=== PATIENT | female | born 1970 | race Caucasian/White ===

== ENCOUNTER 2017-09-29 06:57 | Inpatient (IN) | payer OTHER ==
[~2017-09-29] VITALS: Ht 231.1 cm; Wt 114.8 kg
[~2017-09-29 06:57] MED LIST: 'PARAFON FORTE500 M1 PO; ALPRAZOLAM2 MG PO; AMBIEN10 MG PO; AMOXICILLIN500 MG PO; ANAPROX DS550 MG PO; AORACILLIN B500 MG PO; ATIVAN1 MG PO; AUGMENTIN 875 M1 TAB PO; AUGMENTIN 875875 MG PO; BACTRIM DS 8001 TA1 PO; BIAXIN500 MG PO; CIPRO500 MG PO; CLARITIN10 MG PO; CLEOCIN150 MG PO; CLINDAMYCIN HC300 MG PO; DEPAKOTE250 MG PO; DONNATAL1 TAB PO; FLONASE ALLERG9.9 ML NAS; HYDROCODONE BIT1 T11 PO; KENALOG0.1% TP; KLONOPIN2 MG; KLONOPIN2 MG PO; LASIX20 MG PO; LEVOFLOXACIN500 MG PO; LEVOTHYROXINE137 MCG PO; MOTRIN800 MG PO; NORCO 325 MG-51 TAB PO; NORCO 5-325 TA1 EACH PO; PEN-VEE K500 MG PO; PEN-VK500 MG PO; PENICILLIN-VK500 M1 PO; PEPCID20 MG PO; PERCOCET 325 MG1 TA7 PO; PHENERGAN25 M1 PO; PREDNISONE10 MG PO; PRILOSEC OTC20 MG PO; Peridex 473 ML473 ML PO; ROBITUSSIN DM 105 ML PO; SYNTHROID0.075 MG PO; SYNTHROID0.15 MG PO; TRAMADOL HCL50 MG PO; TRAMADOL50 MG PO; TRIMOX500 MG PO; ULTRAM50 MG PO; VICODIN 5/500 505 MG PO; VICODIN 500 MG-1 TAB PO; XANAX2 MG PO; ZANTAC150 MG PO; ZITHROMAX Z PA250 MG PO; ZOFRAN ODT4 MG SL; ZYRTEC10 MG PO
[2017-09-29 07:12] VITALS: BP 166/101
[2017-09-29 07:45] VITALS: BP 133/62
[2017-09-29 08:02] LABS: BASO # 0.1 10*3/uL (0.0-0.1); BASO % 0.6 % (0.0-1.0); EOS # 0.5 10*3/uL (0.0-0.4); EOS % 4.9 % (1.0-4.0); HEMATOCRIT 44.3 % (37.0-47.0); HEMOGLOBIN 14.2 g/dl (12.0-16.0); LYMPH # 2.7 10*3/uL (1.3-4.4); LYMPH % 27.8 % (27.0-41.0); MEAN CELL VOLUME 92.1 fl (81.0-99.0); MEAN CORPUSCULAR HGB 29.5 pg (27.0-31.0); MEAN CORPUSCULAR HGB CONC 32.1 g/dl (33.0-37.0); MONO # 0.7 10*3/uL (0.1-1.0); MONO % 7.6 % (3.0-9.0); NEUT # 5.6 10*3/uL (2.3-7.9); NEUT % 58.8 % (47.0-73.0); PLATELET COUNT AUTOMATED 222 10*3/uL (130-400); RED BLOOD COUNT 4.81 10*6/uL (4.10-5.10); RED CELL DISTRI WIDTH 13.7 % (0-14.5); WHITE BLOOD COUNT 9.6 10*3/uL (4.8-10.8)
--- NOTE | 2017-09-29 08:05 | NUR ---
PAIN AND NAUSEA BETTER AFTER DILAUDID AND ZOFRAN. RAN WOODS RN
[2017-09-29 08:11] LABS: ACT PARTIAL THROMBO TIME 27.6 SECONDS (20.8-31.5); INTERNATIONAL NORM RATIO 1.1 (2.0-3.5)
[2017-09-29 08:19] LABS: ALBUMIN 3.3 gm/dl (3.1-4.5); ALKALINE PHOSPHATASE 72 U/L (45-117); BUN 11 mg/dl (7-24); CHLORIDE 107 mmol/L (98-107); CREATININE 0.93 mg/dL (0.55-1.02); LIPASE 144 U/L (73-393); POTASSIUM 4.2 mmol/L (3.5-5.1); SGOT/AST 15 IU/L (3-35); SGPT/ALT 29 U/L (12-78); SODIUM 141 mmol/L (136-145); TOTAL PROTEIN 6.9 gm/dL (6.4-8.2)
[2017-09-29 08:20] LABS: BILIRUBIN NEGATIVE (NEGATIVE); BLOOD TRACE-LYSED (NEGATIVE); CLARITY SL CLOUDY (CLEAR); COLOR YELLOW (YELLOW); GLUCOSE NEGATIVE (NEGATIVE); KETONE NEGATIVE (NEGATIVE); LEUKO ESTERASE NEGATIVE (NEGATIVE); NITRITE NEGATIVE (NEGATIVE); SPECIFIC GRAVITY 1.025 (1.005-1.030)
[2017-09-29 08:21] LABS: TROPONIN I < 0.015 ng/ml (<0.045)
[2017-09-29 08:35] LABS: BACTERIA 2+; MUCOUS 1+
[2017-09-29 08:38] LABS: CALCIUM OXALATE CRYSTALS TRACE; WAXY CAST 0-2
--- NOTE | 2017-09-29 11:27 | NUR ---
RESTING IN NO DISTRESS. PAIN IS CONTROLLED AT THIS TIME. RAN WOODS RN
[2017-09-29 12:13] VITALS: BP 122/74
[2017-09-29 12:30] VITALS: BP 116/81
--- NOTE | 2017-09-29 12:30 | NUR ---
Time: A 47 year old F admitted to 5E under services of ZULEYMA CALDERA DO, Pt. arrived via wheel chair from ER. Chief complaint: ABDOMINAL PAIN. JUSTICE ZURITA
--- NOTE | 2017-09-29 14:28 | NUR ---
DR. OBREGON MADE AWARE OF CONSULT IN PERSON.
[2017-09-29 16:00] VITALS: BP 111/60
[2017-09-29] MEDS ORDERED: WELLBUTRIN XL150 MG PO (16:09)
[2017-09-29] MEDS ORDERED: LEXAPRO20 MG PO (16:10)
--- NOTE | 2017-09-29 16:25 | NUR ---
MADE AWARE OF ADMISSION. MED RX COMPLETED.
--- NOTE | 2017-09-29 17:00 | NUR ---
INSTRUCTED FOR IS. ACHIEVING A VOLUME OF 1500. LUNG SOUNDS ARE DIMINISHED, BUT CLEAR.ENCOURAGED TO DO IS 5 X DAILY.
[2017-09-29 20:00] VITALS: BP 108/68
--- NOTE | 2017-09-29 20:00 | NUR ---
RESTING IN BED WATCHING TV. RESPIRATIONS EASY. LUNGS DIMINISHED, CLEAR. PULSE OX 98% RA. ABD SOFT WITH NORMOACTIVE BOWEL SOUNDS, DENIES N/V/D. TRACE BLE EDEMA, DECLINING TEDS. CALL LIGHT WITHIN REACH. NO VOICED COMPLAINTS
--- NOTE | 2017-09-29 22:05 | NUR ---
REQUESTED AND RECEIVED NORCO PER PRN ORDER FOR COMPLAINTS OF ABD PAIN RATING A 7. CALL LIGHT WITHIN REACH. WILL MONITOR FOR EFFECTIVENESS
[2017-09-30] VITALS: BP 110/61
--- NOTE | 2017-09-30 | NUR ---
EARLIER NORCO EFFECTIVE, SLEEPING.
--- NOTE | 2017-09-30 06:00 | NUR ---
SLEPT THROUGHOUT NIGHT WITH NO DISTRESS NOTED. RESPIRATIONS EASY. CALL LIGHT WITHIN REACH
[2017-09-30 06:12] LABS: BASO # 0.1 10*3/uL (0.0-0.1); BASO % 0.7 % (0.0-1.0); EOS # 0.5 10*3/uL (0.0-0.4); EOS % 5.1 % (1.0-4.0); HEMATOCRIT 40.7 % (37.0-47.0); HEMOGLOBIN 12.8 g/dl (12.0-16.0); LYMPH # 3.1 10*3/uL (1.3-4.4); LYMPH % 34.5 % (27.0-41.0); MEAN CELL VOLUME 93.6 fl (81.0-99.0); MEAN CORPUSCULAR HGB 29.4 pg (27.0-31.0); MEAN CORPUSCULAR HGB CONC 31.4 g/dl (33.0-37.0); MEAN PLATELET VOLUME 11.5 fl (9.6-12.3); MONO # 0.7 10*3/uL (0.1-1.0); MONO % 7.2 % (3.0-9.0); NEUT # 4.7 10*3/uL (2.3-7.9); NEUT % 52.1 % (47.0-73.0); PLATELET COUNT AUTOMATED 205 10*3/uL (130-400); RED BLOOD COUNT 4.35 10*6/uL (4.10-5.10); WHITE BLOOD COUNT 9.1 10*3/uL (4.8-10.8)
[2017-09-30 06:47] LABS: BUN 7 mg/dl (7-24); CHLORIDE 110 mmol/L (98-107); POTASSIUM 3.6 mmol/L (3.5-5.1); SODIUM 144 mmol/L (136-145)
[2017-09-30 06:59] LABS: CHOLESTEROL 102 mg/dL (<200); CREATININE 0.73 mg/dL (0.55-1.02); FREE T4 0.85 ng/dl (0.76-1.46); HDL CHOLESTEROL 35 mg/dl (40-60); LDL CHOLESTEROL 42 mg/dL (9-159); PHOSPHOROUS 3.3 mg/dL (2.5-4.9); TRIGLYCERIDES 125 mg/dl (<150); VLDL CHOLESTEROL 25 mg/dL (6-40)
[2017-09-30 07:36] LABS: VITAMIN D, 25-HYDROXY 5.6 ng/mL (30-100)
[2017-09-30 08:00] VITALS: BP 124/60
--- NOTE | 2017-09-30 08:00 | NUR ---
IN BED RESTING QUIETLY. AWAKENS TO VOICE. NO S/S OF DISTRESS. SEE ASSESS. WILL CONT TO MONITOR. CALL LIGHT IN REACH.
[2017-09-30 16:00] VITALS: BP 123/75
--- NOTE | 2017-09-30 20:00 | NUR ---
LAB RESULTS AND ORDERS REVIEWED. NO DISTRESS NOTED AT TIME TIME. PT IN BED RESTING. CALL LIGHT IN REACH.
--- NOTE | 2017-09-30 22:49 | NUR ---
PT IN BED RESTING. NO A AND S OF ACUTE DISTRESS NOTED CURRENTLY. WILL CONTINUE TO MONITOR.
[2017-10-01] VITALS: BP 149/80
[2017-10-01 07:11] LABS: BASO # 0.1 10*3/uL (0.0-0.1); BASO % 0.9 % (0.0-1.0); EOS # 0.6 10*3/uL (0.0-0.4); EOS % 5.8 % (1.0-4.0); HEMATOCRIT 42.1 % (37.0-47.0); HEMOGLOBIN 13.9 g/dl (12.0-16.0); LYMPH # 2.5 10*3/uL (1.3-4.4); LYMPH % 24.7 % (27.0-41.0); MEAN CELL VOLUME 92.1 fl (81.0-99.0); MEAN CORPUSCULAR HGB 30.4 pg (27.0-31.0); MEAN PLATELET VOLUME 11.2 fl (9.6-12.3); MONO # 0.6 10*3/uL (0.1-1.0); MONO % 6.1 % (3.0-9.0); NEUT # 6.3 10*3/uL (2.3-7.9); PLATELET COUNT AUTOMATED 228 10*3/uL (130-400); RED BLOOD COUNT 4.57 10*6/uL (4.10-5.10); RED CELL DISTRI WIDTH 13.8 % (0-14.5); WHITE BLOOD COUNT 10.1 10*3/uL (4.8-10.8)
[2017-10-01 07:31] LABS: BUN 7 mg/dl (7-24); CHLORIDE 107 mmol/L (98-107); CREATININE 0.76 mg/dL (0.55-1.02); POTASSIUM 3.7 mmol/L (3.5-5.1); SODIUM 141 mmol/L (136-145)
--- NOTE | 2017-10-01 07:45 | NUR ---
SURGERY IN TO SEE PATIENT TO TAKE HER DOWN FOR CHOLECYSTECYOMY. PATIENT REFUSED TO GO DOWN, AND WANT TO WAIT FOR FAMILY MEMBER TO ARRIVE. PATIENT KEPT NPO.
[2017-10-01 08:00] VITALS: BP 146/88
--- NOTE | 2017-10-01 08:05 | NUR ---
PATIENT RESTING IN BED WITH FAMILY AT THE BEDTIME. PATIENT REPORTS HAVING ANXIETY ABOUT THE OPERATION SCHEDULED FOR TODAY. PATIENT DENIES ANY PAIN, DISCOMFORT, OR SHORTNESS OF BREATHE UPON ASSESSMENT. PATIENT IS AMBULATORY AND A&OX3. HOB ELEVATED, SKIN W/D/I. CALL LIGHT WITHIN REACH. SEE ASSESSMENT.
--- NOTE | 2017-10-01 08:44 | NUR ---
DR. BENITO NOTIFIED THAT PATIENT IS REFUSING CHOLECYSTECTOMY SCHEDULED FOR TODAY. NO FURTHER ORDERS GIVEN.
[2017-10-01 12:30] VITALS: BP 129/80
--- NOTE | 2017-10-01 13:10 | NUR ---
Discharge instructions reviewed with patient/family. Patient receptive and verbalizes understanding. Follow-up care arranged WITH PCP AND IN ONE WEEK. Written instructions given to patient/family. PATIENT AMBULATED OFF OF FLOOR WITH FAMILY VLADIMIR BAER
== END 2017-10-01 13:10 | disposition home or self-care (01) | DRG 446 ==
LOC: ED 06:57 → EDHOLD 11:16 → 5E 11:16
PROVIDERS: Emergency Medicine; Student in an Organized Health Care Education/Training Program; ADMIT Internal Medicine
DX: K80.00 Calculus of gallbladder with acute cholecystitis without obstruction (principal); E66.01 Morbid (severe) obesity due to excess calories; F17.210 Nicotine dependence, cigarettes, uncomplicated; E03.9 Hypothyroidism, unspecified; E55.9 Vitamin D deficiency, unspecified; K83.8 Other specified diseases of biliary tract; Z53.29 Procedure and treatment not carried out because of patient's decision for other reasons; E53.8 Deficiency of other specified B group vitamins; Z71.6 Tobacco abuse counseling; Z88.8 Allergy status to other drugs, medicaments and biological substances; Z79.899 Other long term (current) drug therapy; Z91.81 History of falling; Z90.710 Acquired absence of both cervix and uterus; Z98.51 Tubal ligation status; Z82.49 Family history of ischemic heart disease and other diseases of the circulatory system; Z83.3 Family history of diabetes mellitus; Z83.6 Family history of other diseases of the respiratory system; Z80.8 Family history of malignant neoplasm of other organs or systems; Z85.41 Personal history of malignant neoplasm of cervix uteri; Z68.21 Body mass index [BMI] 21.0-21.9, adult

== ENCOUNTER 2017-11-11 10:12 | Inpatient (IN) | payer OTHER ==
[~2017-11-11] VITALS: Ht 170.1 cm; Wt 113.4 kg
[~2017-11-11 10:12] MED LIST changes: +KLONOPIN2 M1 PO; -KLONOPIN2 MG; +LEXAPRO20 MG PO; +WELLBUTRIN XL150 MG PO
[2017-11-11 10:20] VITALS: BP 149/105
[2017-11-11 10:37] LABS: BASO # 0.1 10*3/uL (0.0-0.1); BASO % 0.4 % (0.0-1.0); EOS # 0.4 10*3/uL (0.0-0.4); EOS % 3.5 % (1.0-4.0); HEMOGLOBIN 14.9 g/dl (12.0-16.0); LYMPH # 2.7 10*3/uL (1.3-4.4); MEAN CELL VOLUME 91.1 fl (81.0-99.0); MEAN CORPUSCULAR HGB 30.2 pg (27.0-31.0); MEAN CORPUSCULAR HGB CONC 33.1 g/dl (33.0-37.0); MEAN PLATELET VOLUME 10.6 fl (9.6-12.3); MONO # 0.6 10*3/uL (0.1-1.0); MONO % 5.3 % (3.0-9.0); NEUT # 7.5 10*3/uL (2.3-7.9); NEUT % 66.5 % (47.0-73.0); PLATELET COUNT AUTOMATED 259 10*3/uL (130-400); RED BLOOD COUNT 4.94 10*6/uL (4.10-5.10); RED CELL DISTRI WIDTH 13.9 % (0-14.5); WHITE BLOOD COUNT 11.3 10*3/uL (4.8-10.8)
[2017-11-11 10:53] LABS: ALBUMIN 3.7 gm/dl (3.1-4.5); ALKALINE PHOSPHATASE 85 U/L (45-117); BUN 11 mg/dl (7-24); CHLORIDE 107 mmol/L (98-107); CREATININE 1.17 mg/dL (0.55-1.02); LIPASE 145 U/L (73-393); SGOT/AST 12 IU/L (3-35); SGPT/ALT 14 U/L (12-78); SODIUM 141 mmol/L (136-145); TOTAL PROTEIN 7.6 gm/dL (6.4-8.2)
[2017-11-11 10:55] LABS: TROPONIN I < 0.015 ng/ml (<0.045)
[2017-11-11 12:00] VITALS: BP 142/90
[2017-11-11 16:00] VITALS: BP 111/73
[2017-11-11 20:00] VITALS: BP 123/81
[2017-11-12] VITALS: BP 114/79
[2017-11-12 07:32] LABS: BASO # 0.1 10*3/uL (0.0-0.1); BASO % 0.6 % (0.0-1.0); EOS # 0.4 10*3/uL (0.0-0.4); EOS % 4.4 % (1.0-4.0); HEMATOCRIT 41.5 % (37.0-47.0); HEMOGLOBIN 13.3 g/dl (12.0-16.0); LYMPH # 2.4 10*3/uL (1.3-4.4); LYMPH % 28.9 % (27.0-41.0); MEAN CELL VOLUME 92.6 fl (81.0-99.0); MEAN CORPUSCULAR HGB 29.7 pg (27.0-31.0); MEAN PLATELET VOLUME 10.6 fl (9.6-12.3); MONO # 0.5 10*3/uL (0.1-1.0); MONO % 6.5 % (3.0-9.0); NEUT # 4.8 10*3/uL (2.3-7.9); NEUT % 59.1 % (47.0-73.0); PLATELET COUNT AUTOMATED 205 10*3/uL (130-400); RED BLOOD COUNT 4.48 10*6/uL (4.10-5.10); RED CELL DISTRI WIDTH 13.7 % (0-14.5); WHITE BLOOD COUNT 8.2 10*3/uL (4.8-10.8)
[2017-11-12 07:52] LABS: ACT PARTIAL THROMBO TIME 28.3 SECONDS (20.8-31.5); INTERNATIONAL NORM RATIO 1.2 (2.0-3.5)
[2017-11-12 07:59] LABS: ALBUMIN 3.1 gm/dl (3.1-4.5); ALKALINE PHOSPHATASE 73 U/L (45-117); BUN 10 mg/dl (7-24); CHLORIDE 107 mmol/L (98-107); CHOLESTEROL 137 mg/dL (<200); CREATININE 0.75 mg/dL (0.55-1.02); HDL CHOLESTEROL 41 mg/dl (40-60); LDL CHOLESTEROL 77 mg/dL (9-159); PHOSPHOROUS 2.8 mg/dL (2.5-4.9); POTASSIUM 3.7 mmol/L (3.5-5.1); SGOT/AST 10 IU/L (3-35); SGPT/ALT 18 U/L (12-78); SODIUM 142 mmol/L (136-145); TOTAL PROTEIN 6.4 gm/dL (6.4-8.2); TRIGLYCERIDES 97 mg/dl (<150); VLDL CHOLESTEROL 19 mg/dL (6-40)
[2017-11-12 08:00] VITALS: BP 124/80
[2017-11-12 08:25] LABS: VITAMIN D, 25-HYDROXY 8.3 ng/mL (30-100)
[2017-11-12] MEDS ORDERED: PHENERGAN25 M3 PO (11:23)
[2017-11-12 12:00] VITALS: BP 116/70
== END 2017-11-12 13:44 | disposition home or self-care (01) | DRG 444 ==
LOC: ED 10:12 → EDHOLD 12:01 → 5E 12:01
PROVIDERS: Internal Medicine Hospice and Palliative Medicine; Student in an Organized Health Care Education/Training Program
DX: K80.20 Calculus of gallbladder without cholecystitis without obstruction (principal); N17.0 Acute kidney failure with tubular necrosis; E66.01 Morbid (severe) obesity due to excess calories; E55.9 Vitamin D deficiency, unspecified; F32.9 Major depressive disorder, single episode, unspecified; E03.9 Hypothyroidism, unspecified; D72.829 Elevated white blood cell count, unspecified; F41.1 Generalized anxiety disorder; R73.9 Hyperglycemia, unspecified; D72.810 Lymphocytopenia; Z71.6 Tobacco abuse counseling; Z72.0 Tobacco use; Z79.899 Other long term (current) drug therapy; Z90.711 Acquired absence of uterus with remaining cervical stump; Z98.51 Tubal ligation status; Z85.41 Personal history of malignant neoplasm of cervix uteri; Z83.3 Family history of diabetes mellitus; Z82.49 Family history of ischemic heart disease and other diseases of the circulatory system; Z80.9 Family history of malignant neoplasm, unspecified; Z88.8 Allergy status to other drugs, medicaments and biological substances; Z68.28 Body mass index [BMI] 28.0-28.9, adult

== ENCOUNTER 2017-12-10 15:20 | Emergency (ER) | payer OTHER ==
[~2017-12-10] VITALS: Ht 170.1 cm; Wt 104.3 kg
[~2017-12-10 15:20] MED LIST changes: +PHENERGAN25 M3 PO
[2017-12-10] MEDS ORDERED: CHLORZOXAZONE500 M2 PO (15:44)
[2017-12-10] MEDS ORDERED: NAPROSYN500 MG PO (15:44)
== END 2017-12-10 17:49 | disposition home or self-care (01) ==
LOC: ED 15:20
DX: M54.2 Cervicalgia (principal); M54.5 Low back pain; M25.561 Pain in right knee; M79.601 Pain in right arm; R03.0 Elevated blood-pressure reading, without diagnosis of hypertension; E03.9 Hypothyroidism, unspecified; F17.200 Nicotine dependence, unspecified, uncomplicated; E66.01 Morbid (severe) obesity due to excess calories; Z98.51 Tubal ligation status; Z98.890 Other specified postprocedural states; Z79.899 Other long term (current) drug therapy; Z88.5 Allergy status to narcotic agent; Z88.6 Allergy status to analgesic agent; W18.49XA Other slipping, tripping and stumbling without falling, initial encounter; Y93.89 Activity, other specified; Y92.481 Parking lot as the place of occurrence of the external cause; Y99.9 Unspecified external cause status

== ENCOUNTER 2018-02-16 19:21 | Emergency (ER) | payer OTHER ==
[~2018-02-16] VITALS: Ht 170.1 cm; Wt 105.2 kg
[~2018-02-16 19:21] MED LIST changes: +CHLORZOXAZONE500 M2 PO; +NAPROSYN500 MG PO
[2018-02-16 20:01] LABS: URINE AMPHETAMINES > 1000 (1000ng/ml); URINE BARBITURATES < 200 (200ng/ml); URINE BENZODIAZEPINES > 200 (200ng/ml); URINE CANNABINOIDS (THC) < 50 (50ng/ml); URINE COCAINE < 300 (300ng/ml); URINE METHADONE < 300 (300ng/ml); URINE OPIATES < 300 (300ng/ml)
[2018-02-16 20:11] LABS: URINE PHENCYCLIDINE < 25 (25ng/ml)
== END 2018-02-16 20:21 | disposition home or self-care (01) ==
LOC: ED 19:21
PROVIDERS: Physician Assistant
DX: Z01.89 Encounter for other specified special examinations (principal); F17.200 Nicotine dependence, unspecified, uncomplicated; Z98.51 Tubal ligation status; Z90.710 Acquired absence of both cervix and uterus; Z98.890 Other specified postprocedural states; Z79.899 Other long term (current) drug therapy; Z88.6 Allergy status to analgesic agent; Z88.5 Allergy status to narcotic agent

== ENCOUNTER → 2018-02-22 | Outpatient (CLI) | payer OTHER | END | disposition home or self-care (01) | LOC: LAB 13:52 | DX: F19.10 Other psychoactive substance abuse, uncomplicated (principal) ==

== ENCOUNTER 2019-05-18 07:19 | Emergency (ER) | payer OTHER ==
[~2019-05-18] VITALS: Ht 170.1 cm; Wt 102.1 kg
--- NOTE | ~2019-05-18 | EKG ---
[place], [place] ELECTROCARDIOGRAM REPORT NAME: OLIVE MERCADO UNIT #: [id number] ROOM: DOCTOR: EPIPHANY DRAFT REPORT BIRTHDATE: [birth year] [facility] Test Date: 2019-05-18 Test Time: 09:57:19 Pat Name: OLIVE MERCADO Department: Room: Gender: F Guardian Family Member: Annie Glasgow : 1970 Requested By: GISELLE KAMINSKI Order Number: [id number] Reading MD: Brayden Javier MD Measurements Intervals [place] Rate: 51 P: 28 [place]: 136 QRS: -10 QRSD: 91 T: 23 QT: 454 QTc: 419 Interpretive Statements Sinus rhythm No previous ECG available for comparison Electronically Signed On 05-23-2019 4:05:22 PDT by Brayden Javier MD CM:EKGRPT:ELECTROCARDIOGRAM REPORT [id number] GISELLE JOHN DRAFT REPORT GISELLE KAMINSKI M.D.
[2019-05-18 07:57] LABS: BASO # 0.1 10*3/uL (0.0-0.1); BASO % 0.6 % (0.0-1.0); EOS # 0.4 10*3/uL (0.0-0.4); EOS % 3.9 % (1.0-4.0); HEMATOCRIT 44.5 % (37.0-47.0); HEMOGLOBIN 14.4 g/dl (12.0-16.0); LYMPH # 2.6 10*3/uL (1.3-4.4); MEAN CELL VOLUME 94.3 fl (81.0-99.0); MEAN CORPUSCULAR HGB 30.5 pg (27.0-31.0); MEAN CORPUSCULAR HGB CONC 32.4 g/dl (33.0-37.0); MONO # 0.7 10*3/uL (0.1-1.0); MONO % 6.9 % (3.0-9.0); NEUT # 6.7 10*3/uL (2.3-7.9); NEUT % 63.2 % (47.0-73.0); PLATELET COUNT AUTOMATED 274 10*3/uL (130-400); RED BLOOD COUNT 4.72 10*6/uL (4.10-5.10); RED CELL DISTRI WIDTH 13.6 % (0-14.5); WHITE BLOOD COUNT 10.5 10*3/uL (4.8-10.8)
[2019-05-18 08:12] LABS: ALBUMIN 3.5 gm/dl (3.1-4.5); ALKALINE PHOSPHATASE 70 U/L (45-117); BUN 11 mg/dl (7-24); CHLORIDE 110 mmol/L (98-107); CREATININE 0.83 mg/dL (0.55-1.02); LIPASE 87 U/L (73-393); POTASSIUM 3.7 mmol/L (3.5-5.1); SGOT/AST 10 IU/L (3-35); SGPT/ALT 15 U/L (12-78); SODIUM 141 mmol/L (136-145); TOTAL PROTEIN 7.3 gm/dL (6.4-8.2)
[2019-05-18 09:53] LABS: BILIRUBIN NEGATIVE (NEGATIVE); BLOOD TRACE-INTACT (NEGATIVE); CLARITY CLEAR (CLEAR); COLOR YELLOW (YELLOW); GLUCOSE NEGATIVE (NEGATIVE); KETONE NEGATIVE (NEGATIVE); LEUKO ESTERASE NEGATIVE (NEGATIVE); NITRITE NEGATIVE (NEGATIVE); PH 5.5 (5.0-9.0); UROBILINOGEN 0.2 E.U./dl (0.2-1.0)
[2019-05-18] MEDS ORDERED: NORCO 10-325 T1 EACH PO (11:27)
[2019-05-18] MEDS ORDERED: PHENERGAN25 MG R (11:29)
[2019-05-18] MEDS ORDERED: LEVOTHYROXINE100 MC1 PO (19:31)
[2019-05-18] MEDS ORDERED: FLUOXETINE HCL40 MG PO (19:34)
[2019-05-18] MEDS ORDERED: FLUOXETINE HYDR20 M1 PO (19:35)
[2019-05-18] MEDS ORDERED: Synthroid,Levo50 MCG PO (19:36)
[2019-05-18] MEDS ORDERED: CLONAZEPAM1 MG PO (19:37)
[2019-05-18] MEDS ORDERED: AMPHETAMINE/DEX30 MG PO (19:39)
[2019-05-24] MEDS ORDERED: NORCO 5-325 TA1 EACH PO (08:21)
[2019-05-24] MEDS ORDERED: AUGMENTIN 875875 MG PO (08:40)
[2019-06-29] MEDS ORDERED: ADDERALL XR 3030 MG PO (14:29)
[2019-06-29] MEDS ORDERED: VITAMIN D5000 UNIT PO (14:30)
== END 2019-05-18 11:37 | disposition home or self-care (01) ==
LOC: ED 07:19
PROVIDERS: Emergency Medicine
DX: K80.20 Calculus of gallbladder without cholecystitis without obstruction (principal); E03.9 Hypothyroidism, unspecified; E66.01 Morbid (severe) obesity due to excess calories; F17.200 Nicotine dependence, unspecified, uncomplicated; Z79.899 Other long term (current) drug therapy; Z88.6 Allergy status to analgesic agent

== ENCOUNTER 2019-07-03 01:49 | Inpatient (IN) | payer OTHER ==
[2019-06-29 14:16] VITALS: BP 141/88
[2019-06-29 15:15] LABS: BASO # 0.1 10*3/uL (0.0-0.1); BASO % 0.8 % (0.0-1.0); EOS # 0.4 10*3/uL (0.0-0.4); EOS % 4.6 % (1.0-4.0); HEMATOCRIT 46.1 % (37.0-47.0); HEMOGLOBIN 14.7 g/dl (12.0-16.0); LYMPH # 2.7 10*3/uL (1.3-4.4); LYMPH % 30.6 % (27.0-41.0); MEAN CELL VOLUME 93.7 fl (81.0-99.0); MEAN CORPUSCULAR HGB 29.9 pg (27.0-31.0); MEAN CORPUSCULAR HGB CONC 31.9 g/dl (33.0-37.0); MEAN PLATELET VOLUME 10.6 fl (9.6-12.3); MONO # 0.6 10*3/uL (0.1-1.0); MONO % 7.1 % (3.0-9.0); NEUT % 56.4 % (47.0-73.0); PLATELET COUNT AUTOMATED 275 10*3/uL (130-400); RED BLOOD COUNT 4.92 10*6/uL (4.10-5.10); RED CELL DISTRI WIDTH 13.5 % (0-14.5); WHITE BLOOD COUNT 8.8 10*3/uL (4.8-10.8)
[2019-06-29 15:38] LABS: ALBUMIN 3.9 gm/dl (3.1-4.5); BILIRUBIN, DIRECT 0.1 mg/dL (0.0-0.2)
[2019-07-02 19:30] LABS: ALBUMIN 3.9 gm/dl (3.1-4.5); BILIRUBIN, DIRECT 0.1 mg/dL (0.0-0.2)
[2019-07-02 20:10] LABS: BASO # 0.1 10*3/uL (0.0-0.1); BASO % 0.8 % (0.0-1.0); EOS # 0.5 10*3/uL (0.0-0.4); EOS % 5.2 % (1.0-4.0); HEMATOCRIT 46.5 % (37.0-47.0); HEMOGLOBIN 14.8 g/dl (12.0-16.0); LYMPH # 2.9 10*3/uL (1.3-4.4); MEAN CELL VOLUME 93.9 fl (81.0-99.0); MEAN CORPUSCULAR HGB 29.9 pg (27.0-31.0); MEAN CORPUSCULAR HGB CONC 31.8 g/dl (33.0-37.0); MEAN PLATELET VOLUME 11.5 fl (9.6-12.3); MONO # 0.5 10*3/uL (0.1-1.0); MONO % 5.9 % (3.0-9.0); NEUT # 4.8 10*3/uL (2.3-7.9); NEUT % 54.8 % (47.0-73.0); PLATELET COUNT AUTOMATED 273 10*3/uL (130-400); RED BLOOD COUNT 4.95 10*6/uL (4.10-5.10); RED CELL DISTRI WIDTH 13.6 % (0-14.5); WHITE BLOOD COUNT 8.8 10*3/uL (4.8-10.8)
[~2019-07-03] VITALS: Ht 170.1 cm; Wt 102.5 kg
[2019-07-03] VITALS (7 sets, daily range): BP systolic 106–133; BP diastolic 58–90
--- NOTE | ~2019-07-03 | EKG ---
[place], [place] ELECTROCARDIOGRAM REPORT NAME: OLIVE MERCADO UNIT #: [id number] ROOM: 529 DOCTOR: TANIANY DRAFT REPORT BIRTHDATE: [birth year] [facility] Test Date: 2019-06-29 Test Time: 15:24:21 Pat Name: OLIVE MERCADO Department: Room: 529 Gender: F Rn Unit Manager: MIC : 1970 Requested By: NORIS MARTEL Order Number: [id number] Reading MD: Brayden Javier MD Measurements Intervals [place] Rate: 51 P: 32 [place]: 145 QRS: -8 QRSD: 91 T: 38 QT: 443 QTc: 409 Interpretive Statements Sinus rhythm Baseline wander in lead(s) II Compared to ECG 05/18/2019 17:23:38 Myocardial infarct finding no longer present Electronically Signed On 07-04-2019 4:00:06 PDT by Brayden Javier MD CM:EKGRPT:ELECTROCARDIOGRAM REPORT [id number] NORIS MARTEL MD EPIPHANY DRAFT REPORT NORIS MARTEL MD
[~2019-07-03 01:49] MED LIST changes: +ADDERALL XR 3030 MG PO; +AMPHETAMINE/DEX30 MG PO; +CLONAZEPAM1 MG PO; +FLUOXETINE HCL40 MG PO; +FLUOXETINE HYDR20 M1 PO; +LEVOTHYROXINE100 MC1 PO; +NORCO 10-325 T1 EACH PO; +PHENERGAN25 MG R; +Synthroid,Levo50 MCG PO; +VITAMIN D5000 UNIT PO
[2019-07-04] VITALS: BP 115/78
[2019-07-04 06:24] LABS: BASO % 0.1 % (0.0-1.0); HEMATOCRIT 39.2 % (37.0-47.0); HEMOGLOBIN 12.5 g/dl (12.0-16.0); LYMPH % 12.5 % (27.0-41.0); MEAN CELL VOLUME 93.8 fl (81.0-99.0); MEAN CORPUSCULAR HGB 29.9 pg (27.0-31.0); MEAN CORPUSCULAR HGB CONC 31.9 g/dl (33.0-37.0); MEAN PLATELET VOLUME 11.4 fl (9.6-12.3); MONO # 1.1 10*3/uL (0.1-1.0); MONO % 7.1 % (3.0-9.0); NEUT # 12.7 10*3/uL (2.3-7.9); NEUT % 79.8 % (47.0-73.0); PLATELET COUNT AUTOMATED 228 10*3/uL (130-400); RED BLOOD COUNT 4.18 10*6/uL (4.10-5.10); RED CELL DISTRI WIDTH 13.6 % (0-14.5); WHITE BLOOD COUNT 15.9 10*3/uL (4.8-10.8)
[2019-07-04 06:35] LABS: ALBUMIN 2.8 gm/dl (3.1-4.5); ALKALINE PHOSPHATASE 58 U/L (45-117); BUN 10 mg/dl (7-24); CHLORIDE 108 mmol/L (98-107); CREATININE 0.83 mg/dL (0.55-1.02); PHOSPHOROUS 2.7 mg/dL (2.5-4.9); SGOT/AST 26 IU/L (3-35); SGPT/ALT 27 U/L (12-78); SODIUM 142 mmol/L (136-145); TOTAL PROTEIN 6.1 gm/dL (6.4-8.2)
[2019-07-04 08:00] VITALS: BP 105/57
[2019-07-04 12:00] VITALS: BP 115/50
[2019-07-04 16:00] VITALS: BP 120/52
[2019-07-04 20:00] VITALS: BP 105/49
[2019-07-05] VITALS: BP 126/70
[2019-07-05 06:16] LABS: BASO # 0.1 10*3/uL (0.0-0.1); BASO % 0.6 % (0.0-1.0); EOS # 0.2 10*3/uL (0.0-0.4); EOS % 2.1 % (1.0-4.0); HEMATOCRIT 37.3 % (37.0-47.0); HEMOGLOBIN 11.6 g/dl (12.0-16.0); LYMPH # 2.7 10*3/uL (1.3-4.4); LYMPH % 26.2 % (27.0-41.0); MEAN CELL VOLUME 96.1 fl (81.0-99.0); MEAN CORPUSCULAR HGB 29.9 pg (27.0-31.0); MEAN CORPUSCULAR HGB CONC 31.1 g/dl (33.0-37.0); MEAN PLATELET VOLUME 11.5 fl (9.6-12.3); MONO # 0.8 10*3/uL (0.1-1.0); MONO % 7.2 % (3.0-9.0); NEUT # 6.5 10*3/uL (2.3-7.9); NEUT % 62.8 % (47.0-73.0); PLATELET COUNT AUTOMATED 204 10*3/uL (130-400); RED BLOOD COUNT 3.88 10*6/uL (4.10-5.10); RED CELL DISTRI WIDTH 13.8 % (0-14.5); WHITE BLOOD COUNT 10.4 10*3/uL (4.8-10.8)
[2019-07-05 06:35] LABS: ALBUMIN 2.7 gm/dl (3.1-4.5); BUN 7 mg/dl (7-24); CHLORIDE 111 mmol/L (98-107); POTASSIUM 3.4 mmol/L (3.5-5.1); SGPT/ALT 21 U/L (12-78); SODIUM 146 mmol/L (136-145)
[2019-07-05 06:38] LABS: ALKALINE PHOSPHATASE 54 U/L (45-117); CREATININE 0.75 mg/dL (0.55-1.02); SGOT/AST 20 IU/L (3-35); TOTAL PROTEIN 5.8 gm/dL (6.4-8.2)
[2019-07-05 08:00] VITALS: BP 120/54
[2019-07-05] MEDS ORDERED: NORCO 7.5-3251 EACH PO (11:58)
[2019-07-05] MEDS ORDERED: IBU800 MG PO (11:58)
== END 2019-07-05 14:30 | disposition home or self-care (01) | DRG 414 ==
LOC: SDC 01:49 → 5E 11:36 → SDC 14:00 → 5E 16:24
PROVIDERS: Internal Medicine; ADMIT Family Medicine
PROC: 0FT40ZZ Resection of Gallbladder, Open Approach (ICD-10-PCS; principal; 2019-07-03)
PROC: 0FJ44ZZ Inspection of Gallbladder, Percutaneous Endoscopic Approach (ICD-10-PCS; principal; 2019-07-03)
PROC: BF131ZZ Fluoroscopy of Gallbladder and Bile Ducts using Low Osmolar Contrast (ICD-10-PCS; principal; 2019-07-03)
DX: K80.12 Calculus of gallbladder with acute and chronic cholecystitis without obstruction (principal); E43 Unspecified severe protein-calorie malnutrition; E03.9 Hypothyroidism, unspecified; E66.01 Morbid (severe) obesity due to excess calories; E55.9 Vitamin D deficiency, unspecified; F41.1 Generalized anxiety disorder; F32.9 Major depressive disorder, single episode, unspecified; F90.9 Attention-deficit hyperactivity disorder, unspecified type; R00.1 Bradycardia, unspecified; D72.829 Elevated white blood cell count, unspecified; R73.9 Hyperglycemia, unspecified; F17.219 Nicotine dependence, cigarettes, with unspecified nicotine-induced disorders; Z71.6 Tobacco abuse counseling; Z90.49 Acquired absence of other specified parts of digestive tract; Z85.41 Personal history of malignant neoplasm of cervix uteri; Z98.51 Tubal ligation status; Z90.711 Acquired absence of uterus with remaining cervical stump; Z83.3 Family history of diabetes mellitus; Z80.8 Family history of malignant neoplasm of other organs or systems; Z82.49 Family history of ischemic heart disease and other diseases of the circulatory system; Z82.5 Family history of asthma and other chronic lower respiratory diseases; Z88.6 Allergy status to analgesic agent; Z91.041 Radiographic dye allergy status; Z79.899 Other long term (current) drug therapy; Z79.890 Hormone replacement therapy; Z68.35 Body mass index [BMI] 35.0-35.9, adult; G89.18 Other acute postprocedural pain

== ENCOUNTER 2019-07-11 22:50 | Emergency (ER) | payer OTHER ==
[~2019-07-11] VITALS: Ht 170.1 cm; Wt 101.2 kg
[~2019-07-11 22:50] MED LIST changes: +IBU800 MG PO; +NORCO 7.5-3251 EACH PO
[2019-07-12 00:10] LABS: BASO # 0.1 10*3/uL (0.0-0.1); BASO % 0.6 % (0.0-1.0); EOS # 0.8 10*3/uL (0.0-0.4); EOS % 7.6 % (1.0-4.0); HEMATOCRIT 41.8 % (37.0-47.0); HEMOGLOBIN 13.3 g/dl (12.0-16.0); LYMPH # 2.7 10*3/uL (1.3-4.4); LYMPH % 25.2 % (27.0-41.0); MEAN CELL VOLUME 93.3 fl (81.0-99.0); MEAN CORPUSCULAR HGB 29.7 pg (27.0-31.0); MEAN CORPUSCULAR HGB CONC 31.8 g/dl (33.0-37.0); MEAN PLATELET VOLUME 10.5 fl (9.6-12.3); MONO # 0.8 10*3/uL (0.1-1.0); MONO % 7.4 % (3.0-9.0); NEUT # 6.1 10*3/uL (2.3-7.9); NEUT % 58.2 % (47.0-73.0); PLATELET COUNT AUTOMATED 314 10*3/uL (130-400); RED BLOOD COUNT 4.48 10*6/uL (4.10-5.10); RED CELL DISTRI WIDTH 13.8 % (0-14.5); WHITE BLOOD COUNT 10.5 10*3/uL (4.8-10.8)
[2019-07-12 00:42] LABS: ALBUMIN 3.2 gm/dl (3.1-4.5); ALKALINE PHOSPHATASE 77 U/L (45-117); BUN 10 mg/dl (7-24); CHLORIDE 106 mmol/L (98-107); CREATININE 1.06 mg/dL (0.55-1.02); LIPASE 79 U/L (73-393); POTASSIUM 3.7 mmol/L (3.5-5.1); SGOT/AST 13 IU/L (3-35); SGPT/ALT 16 U/L (12-78); SODIUM 141 mmol/L (136-145); TOTAL PROTEIN 7.1 gm/dL (6.4-8.2)
== END 2019-07-12 02:00 | disposition home or self-care (01) ==
LOC: ED 22:50
PROVIDERS: Student in an Organized Health Care Education/Training Program
DX: K91.840 Postprocedural hemorrhage of a digestive system organ or structure following a digestive system procedure (principal); E03.9 Hypothyroidism, unspecified; E66.01 Morbid (severe) obesity due to excess calories; F17.210 Nicotine dependence, cigarettes, uncomplicated; Z90.710 Acquired absence of both cervix and uterus; Z91.041 Radiographic dye allergy status; Z88.6 Allergy status to analgesic agent; Z79.899 Other long term (current) drug therapy; Y83.9 Surgical procedure, unspecified as the cause of abnormal reaction of the patient, or of later complication, without mention of misadventure at the time of the procedure

== ENCOUNTER 2019-07-17 14:14 | Emergency (ER) | payer OTHER ==
[~2019-07-17] VITALS: Ht 170.1 cm; Wt 101.2 kg
== END 2019-07-17 16:05 | disposition home or self-care (01) ==
LOC: ED 14:14
DX: K29.00 Acute gastritis without bleeding (principal); Z48.03 Encounter for change or removal of drains; F17.200 Nicotine dependence, unspecified, uncomplicated; Z90.49 Acquired absence of other specified parts of digestive tract; Z91.041 Radiographic dye allergy status; Z88.8 Allergy status to other drugs, medicaments and biological substances; Z79.899 Other long term (current) drug therapy; Z90.710 Acquired absence of both cervix and uterus

== ENCOUNTER → 2020-12-10 | Outpatient (CLI) | payer MEDICARE ==
[2020-12-10 18:01] LABS: BASO # 0.1 10*3/uL (0.0-0.1); BASO % 0.7 % (0.0-1.0); EOS # 0.2 10*3/uL (0.0-0.4); EOS % 2.6 % (1.0-4.0); HEMATOCRIT 49.2 % (37.0-47.0); LYMPH # 2.9 10*3/uL (1.3-4.4); LYMPH % 30.6 % (27.0-41.0); MEAN CELL VOLUME 90.9 fl (81.0-99.0); MEAN CORPUSCULAR HGB 28.5 pg (27.0-31.0); MEAN CORPUSCULAR HGB CONC 31.3 g/dl (33.0-37.0); MEAN PLATELET VOLUME 10.6 fl (9.6-12.3); MONO # 0.6 10*3/uL (0.1-1.0); MONO % 6.3 % (3.0-9.0); NEUT # 5.5 10*3/uL (2.3-7.9); NEUT % 59.4 % (47.0-73.0); PLATELET COUNT AUTOMATED 340 10*3/uL (130-400); RED BLOOD COUNT 5.41 10*6/uL (4.10-5.10); RED CELL DISTRI WIDTH 14.2 % (0-14.5); WHITE BLOOD COUNT 9.3 10*3/uL (4.8-10.8)
[2020-12-10 18:38] LABS: ALBUMIN 3.7 gm/dl (3.1-4.5); ALKALINE PHOSPHATASE 108 U/L (45-117); BUN 10 mg/dl (7-24); CHLORIDE 107 mmol/L (98-107); CHOLESTEROL 173 mg/dL (<200); CREATININE 0.83 mg/dL (0.55-1.02); FREE T4 0.85 ng/dl (0.76-1.46); HDL CHOLESTEROL 48 mg/dl (40-60); LDL CHOLESTEROL 100 mg/dL (9-159); POTASSIUM 4.3 mmol/L (3.5-5.1); SGOT/AST 24 IU/L (3-35); SGPT/ALT 41 U/L (12-78); SODIUM 140 mmol/L (136-145); TOTAL PROTEIN 8.3 gm/dL (6.4-8.2); TRIGLYCERIDES 126 mg/dl (<150); VLDL CHOLESTEROL 25 mg/dL (6-40)
[2020-12-10 18:45] LABS: VITAMIN D, 25-HYDROXY 17.4 ng/mL (30-100)
== END | disposition home or self-care (01) ==
LOC: LAB 17:12
PROVIDERS: ATTEND Internal Medicine
DX: I10 Essential (primary) hypertension (principal); E03.9 Hypothyroidism, unspecified; E55.9 Vitamin D deficiency, unspecified; Z00.00 Encounter for general adult medical examination without abnormal findings

== ENCOUNTER → 2021-07-25 | Outpatient (CLI) | payer MEDICARE | END | disposition home or self-care (01) | LOC: COVID19 17:34 | PROVIDERS: ATTEND Podiatrist Foot & Ankle Surgery | DX: Z11.52 Encounter for screening for COVID-19 (principal) ==

== ENCOUNTER 2021-09-24 18:13 | Emergency (ER) | payer MEDICARE ==
[~2021-09-24] VITALS: Ht 170.1 cm; Wt 113.4 kg
[2021-09-24] MEDS ORDERED: AUGMENTIN 875875 MG PO (19:30)
[2021-09-24] MEDS ORDERED: IBUPROFEN600 MG PO (19:30)
[2021-09-24] MEDS ORDERED: HYDROCODONE-AC1 EAC1 PO (22:04)
== END 2021-09-24 22:24 | disposition home or self-care (01) ==
LOC: ED 18:13
DX: S91.312A Laceration without foreign body, left foot, initial encounter (principal); Z91.041 Radiographic dye allergy status; Z88.6 Allergy status to analgesic agent; Z79.899 Other long term (current) drug therapy; W54.0XXA Bitten by dog, initial encounter; Y93.89 Activity, other specified; Y92.89 Other specified places as the place of occurrence of the external cause; Y99.8 Other external cause status

== ENCOUNTER 2021-09-28 16:50 | Emergency (ER) | payer MEDICARE ==
[~2021-09-28 16:50] MED LIST changes: +HYDROCODONE-AC1 EAC1 PO; +IBUPROFEN600 MG PO
== END 2021-09-28 17:50 | disposition home or self-care (01) ==
LOC: ED 16:50
DX: Z23 Encounter for immunization (principal); Z91.041 Radiographic dye allergy status; Z88.6 Allergy status to analgesic agent; Z79.899 Other long term (current) drug therapy; F17.200 Nicotine dependence, unspecified, uncomplicated

== ENCOUNTER 2022-06-01 20:36 | Emergency (ER) | payer MEDICARE ==
[2022-06-01] MEDS ORDERED: PROZAC40 M1 PO (21:16)
[2022-06-01] MEDS ORDERED: PREDNISONE10 MG PO (21:47)
== END 2022-06-01 21:47 | disposition home or self-care (01) ==
LOC: ED 20:36
DX: M72.2 Plantar fascial fibromatosis (principal); F17.200 Nicotine dependence, unspecified, uncomplicated; Z98.51 Tubal ligation status; Z79.899 Other long term (current) drug therapy; Z91.041 Radiographic dye allergy status; Z88.6 Allergy status to analgesic agent

== ENCOUNTER 2022-12-20 18:01 | Emergency (ER) | payer MEDICARE ==
[~2022-12-20] VITALS: Ht 170.1 cm; Wt 108.9 kg
[~2022-12-20 18:01] MED LIST changes: +PROZAC40 M1 PO
[2022-12-20] MEDS ORDERED: MELOXICAM15 MG PO (18:59)
== END 2022-12-20 19:21 | disposition home or self-care (01) ==
LOC: ED 18:01
DX: R07.81 Pleurodynia (principal); Z91.041 Radiographic dye allergy status; Z88.8 Allergy status to other drugs, medicaments and biological substances; Z90.49 Acquired absence of other specified parts of digestive tract; Z90.711 Acquired absence of uterus with remaining cervical stump; Z98.51 Tubal ligation status; Z98.890 Other specified postprocedural states

== ENCOUNTER 2023-01-18 16:56 | Emergency (ER) | payer MEDICARE ==
[~2023-01-18] VITALS: Wt 108.9 kg
[~2023-01-18 16:56] MED LIST changes: +MELOXICAM15 MG PO
[2023-01-18 20:29] LABS: BASO # 0.1 10*3/uL (0.0-0.1); BASO % 0.7 % (0.0-1.0); EOS # 0.4 10*3/uL (0.0-0.4); EOS % 4.3 % (1.0-4.0); LYMPH # 2.5 10*3/uL (1.3-4.4); LYMPH % 27.4 % (27.0-41.0); MEAN CELL VOLUME 91.8 fl (81.0-99.0); MEAN CORPUSCULAR HGB 29.3 pg (27.0-31.0); MEAN CORPUSCULAR HGB CONC 31.9 g/dl (33.0-37.0); MEAN PLATELET VOLUME 10.2 fl (9.6-12.3); MONO # 0.7 10*3/uL (0.1-1.0); MONO % 7.3 % (3.0-9.0); NEUT # 5.4 10*3/uL (2.3-7.9); PLATELET COUNT AUTOMATED 290 10*3/uL (130-400); RED BLOOD COUNT 5.23 10*6/uL (4.10-5.10); RED CELL DISTRI WIDTH 14.7 % (0-14.5)
[2023-01-18 20:47] LABS: ALKALINE PHOSPHATASE 117 U/L (46-116); BUN 9 mg/dl (9-23); CHLORIDE 107 mmol/L (98-107); POTASSIUM 3.7 mmol/L (3.4-5.1); SGPT/ALT 13 U/L (10-49); TOTAL PROTEIN 7.2 gm/dL (6.0-8.0)
[2023-01-18] MEDS ORDERED: MEDROL DOSEPAK4 MG PO (21:30)
[2023-01-18] MEDS ORDERED: NAPROSYN500 MG PO (21:30)
== END 2023-01-18 21:42 | disposition home or self-care (01) ==
LOC: ED 16:56
PROVIDERS: Physician Assistant
DX: M77.32 Calcaneal spur, left foot (principal); M77.31 Calcaneal spur, right foot; M54.16 Radiculopathy, lumbar region; Z91.041 Radiographic dye allergy status; Z88.6 Allergy status to analgesic agent; Z90.49 Acquired absence of other specified parts of digestive tract; Z98.51 Tubal ligation status; Z90.711 Acquired absence of uterus with remaining cervical stump; Z90.89 Acquired absence of other organs

== ENCOUNTER 2024-07-28 12:49 | Inpatient (IN) | payer MEDICARE ==
[~2024-07-28] VITALS: Ht 170.1 cm; Wt 90.7 kg
[~2024-07-28 12:49] MED LIST changes: +MEDROL DOSEPAK4 MG PO
[2024-07-28 13:04] VITALS: BP 140/109
[2024-07-28] MEDS ORDERED: AMITRIPTYLINE50 MG PO (13:05)
[2024-07-28 15:09] LABS: BASO % 0.4 % (0.0-1.0); EOS # 0.4 10*3/uL (0.0-0.4); EOS % 3.6 % (1.0-4.0); HEMATOCRIT 46.4 % (37.0-47.0); LYMPH # 1.4 10*3/uL (1.3-4.4); LYMPH % 13.8 % (27.0-41.0); MEAN CELL VOLUME 87.9 fl (81.0-99.0); MEAN CORPUSCULAR HGB 28.4 pg (27.0-31.0); MEAN CORPUSCULAR HGB CONC 32.3 g/dl (33.0-37.0); MEAN PLATELET VOLUME 10.3 fl (9.6-12.3); MONO # 0.7 10*3/uL (0.1-1.0); MONO % 6.8 % (3.0-9.0); NEUT # 7.4 10*3/uL (2.3-7.9); NEUT % 74.9 % (47.0-73.0); PLATELET COUNT AUTOMATED 291 10*3/uL (130-400); RED BLOOD COUNT 5.28 10*6/uL (4.10-5.10); RED CELL DISTRI WIDTH 13.5 % (0-14.5); WHITE BLOOD COUNT 9.9 10*3/uL (4.8-10.8)
[2024-07-28] MEDS ORDERED: Ondansetron Hydrochloride 4 MG/2 ML VIAL IV ONE (15:15)
[2024-07-28 15:27] LABS: ALKALINE PHOSPHATASE 219 U/L (46-116); BUN 14 mg/dl (9-23); CHLORIDE 103 mmol/L (98-107); LIPASE 29 U/L (12-53); POTASSIUM 3.3 mmol/L (3.4-5.1); SGPT/ALT 541 U/L (5-49); TOTAL PROTEIN 8.1 gm/dL (6.0-8.0)
[2024-07-28] MEDS ORDERED: Ondansetron Hydrochloride 4 MG TAB PO ONE (15:40)
[2024-07-28] MEDS ORDERED: SODIUM CHLORIDE 0.9% 1,000 ML IV ONE (21:00)
[2024-07-28 21:15] VITALS: BP 93/50
[2024-07-28] MEDS ORDERED: ACETAMINOPHEN 325 MG TAB PO PRN (21:15)
[2024-07-28] MEDS ORDERED: MORPHINE Sulfate 2 MG/ML SYR IV PRN (21:15)
[2024-07-28] MEDS ORDERED: Acetaminophen/Hydrocodone 5 MG/325 MG TABLET PO PRN (21:15)
[2024-07-28] MEDS ORDERED: BISACODYL 5 MG TAB PO PRN (21:15)
[2024-07-28] MEDS ORDERED: Ondansetron Hydrochloride 4 MG/2 ML VIAL IV PRN (21:15)
[2024-07-28] MEDS ORDERED: OLANZAPINE5 MG PO (21:18)
[2024-07-28] MEDS ORDERED: LEVOTHYROXINE200 MC2 PO (21:18)
[2024-07-28] MEDS ORDERED: POTASSIUM CHLORIDE 20 MEQ TAB PO ONE (21:20)
[2024-07-28] MEDS ORDERED: Piperacillin Sodium/Tazobact 50 ML IV SCH (22:00)
[2024-07-29 05:43] VITALS: BP 97/55
[2024-07-29] MEDS ORDERED: Levothyroxine Sodium 200 MCG TAB PO SCH (06:00)
[2024-07-29 06:38] LABS: BASO % 0.5 % (0.0-1.0); EOS # 0.3 10*3/uL (0.0-0.4); EOS % 3.8 % (1.0-4.0); HEMATOCRIT 41.1 % (37.0-47.0); LYMPH # 1.2 10*3/uL (1.3-4.4); LYMPH % 14.3 % (27.0-41.0); MEAN CELL VOLUME 89.3 fl (81.0-99.0); MEAN CORPUSCULAR HGB 28.5 pg (27.0-31.0); MEAN CORPUSCULAR HGB CONC 31.9 g/dl (33.0-37.0); MEAN PLATELET VOLUME 10.8 fl (9.6-12.3); MONO # 0.9 10*3/uL (0.1-1.0); MONO % 10.8 % (3.0-9.0); NEUT % 70.2 % (47.0-73.0); PLATELET COUNT AUTOMATED 230 10*3/uL (130-400); RED CELL DISTRI WIDTH 13.6 % (0-14.5); WHITE BLOOD COUNT 8.5 10*3/uL (4.8-10.8)
[2024-07-29 07:17] LABS: ALKALINE PHOSPHATASE 210 U/L (46-116); BUN 13 mg/dl (9-23); CHLORIDE 106 mmol/L (98-107); CHOLESTEROL 134 mg/dL (<200); LDL CHOLESTEROL 75 mg/dL (9-159); POTASSIUM 3.7 mmol/L (3.4-5.1); SGPT/ALT 524 U/L (5-49); TOTAL PROTEIN 7.2 gm/dL (6.0-8.0); TRIGLYCERIDES 91 mg/dl (<150)
[2024-07-29 09:36] VITALS: BP 110/65
[2024-07-29] MEDS ORDERED: Amitriptyline Hydrochloride 50 MG TAB PO SCH (10:00)
[2024-07-29] MEDS ORDERED: Fluoxetine Hydrochloride 20 MG CAP PO SCH (10:00)
[2024-07-29] MEDS ORDERED: Enoxaparin Sodium 40 MG/0.4 ML SYR SC SCH (10:00)
[2024-07-29 12:36] VITALS: BP 108/66
[2024-07-29 16:57] VITALS: BP 106/51
[2024-07-29] MEDS ORDERED: IOHEXOL 300 MG/ML 100 ML VIAL IV ONE (18:10)
[2024-07-29] MEDS ORDERED: OLANZAPINE 2.5 MG TAB PO SCH (22:00)
[2024-07-30 05:01] VITALS: BP 116/73
[2024-07-30 07:13] LABS: BASO # 0.1 10*3/uL (0.0-0.1); BASO % 0.6 % (0.0-1.0); EOS # 0.5 10*3/uL (0.0-0.4); EOS % 6.2 % (1.0-4.0); HEMATOCRIT 42.1 % (37.0-47.0); LYMPH # 1.8 10*3/uL (1.3-4.4); LYMPH % 22.7 % (27.0-41.0); MEAN CELL VOLUME 90.3 fl (81.0-99.0); MEAN CORPUSCULAR HGB 28.3 pg (27.0-31.0); MEAN CORPUSCULAR HGB CONC 31.4 g/dl (33.0-37.0); MEAN PLATELET VOLUME 10.9 fl (9.6-12.3); MONO # 0.9 10*3/uL (0.1-1.0); MONO % 11.3 % (3.0-9.0); NEUT # 4.6 10*3/uL (2.3-7.9); NEUT % 58.8 % (47.0-73.0); PLATELET COUNT AUTOMATED 258 10*3/uL (130-400); RED BLOOD COUNT 4.66 10*6/uL (4.10-5.10); RED CELL DISTRI WIDTH 13.8 % (0-14.5); WHITE BLOOD COUNT 7.8 10*3/uL (4.8-10.8)
[2024-07-30 07:37] LABS: ALKALINE PHOSPHATASE 200 U/L (46-116); BUN 10 mg/dl (9-23); CHLORIDE 104 mmol/L (98-107); POTASSIUM 3.8 mmol/L (3.4-5.1); SGPT/ALT 400 U/L (5-49); TOTAL PROTEIN 7.3 gm/dL (6.0-8.0)
[2024-07-30 08:00] VITALS: BP 115/80
[2024-07-30 16:00] VITALS: BP 129/75
== END 2024-07-30 17:30 | disposition short-term general hospital (02) | DRG 446 ==
LOC: ED 12:49 → EDHOLD 21:06
PROVIDERS: Internal Medicine; ADMIT Student in an Organized Health Care Education/Training Program; ATTEND Student in an Organized Health Care Education/Training Program
DX: K80.60 Calculus of gallbladder and bile duct with cholecystitis, unspecified, without obstruction (principal); R74.01 Elevation of levels of liver transaminase levels; E03.9 Hypothyroidism, unspecified; F41.1 Generalized anxiety disorder; F90.9 Attention-deficit hyperactivity disorder, unspecified type; F32.A Depression, unspecified; E87.6 Hypokalemia; R73.9 Hyperglycemia, unspecified; E80.6 Other disorders of bilirubin metabolism; K76.0 Fatty (change of) liver, not elsewhere classified; Z88.8 Allergy status to other drugs, medicaments and biological substances; Z91.09 Other allergy status, other than to drugs and biological substances; Z79.899 Other long term (current) drug therapy; Z79.01 Long term (current) use of anticoagulants; Z79.2 Long term (current) use of antibiotics; Z90.49 Acquired absence of other specified parts of digestive tract; Z90.711 Acquired absence of uterus with remaining cervical stump; Z83.3 Family history of diabetes mellitus; Z82.49 Family history of ischemic heart disease and other diseases of the circulatory system; Z82.5 Family history of asthma and other chronic lower respiratory diseases; Z80.8 Family history of malignant neoplasm of other organs or systems

== ENCOUNTER → 2024-09-13 | Outpatient (CLI) | payer MEDICARE ==
[~2024-09-13] MED LIST changes: +AMITRIPTYLINE50 MG PO; +LEVOTHYROXINE200 MC2 PO; +OLANZAPINE5 MG PO
[2024-09-13 11:51] LABS: BASO # 0.1 10*3/uL (0.0-0.1); BASO % 0.9 % (0.0-1.0); EOS # 0.3 10*3/uL (0.0-0.4); EOS % 4.4 % (1.0-4.0); HEMATOCRIT 44.3 % (37.0-47.0); MEAN CELL VOLUME 87.2 fl (81.0-99.0); MEAN CORPUSCULAR HGB 28.1 pg (27.0-31.0); MEAN CORPUSCULAR HGB CONC 32.3 g/dl (33.0-37.0); MEAN PLATELET VOLUME 10.5 fl (9.6-12.3); MONO # 0.5 10*3/uL (0.1-1.0); MONO % 7.6 % (3.0-9.0); NEUT % 58.7 % (47.0-73.0); PLATELET COUNT AUTOMATED 261 10*3/uL (130-400); RED BLOOD COUNT 5.08 10*6/uL (4.10-5.10); RED CELL DISTRI WIDTH 13.5 % (0-14.5); WHITE BLOOD COUNT 6.8 10*3/uL (4.8-10.8)
[2024-09-13 12:17] LABS: ALKALINE PHOSPHATASE 107 U/L (46-116); BUN 11 mg/dl (9-23); CHLORIDE 108 mmol/L (98-107); CHOLESTEROL 122 mg/dL (<200); LDL CHOLESTEROL 60 mg/dL (9-159); POTASSIUM 3.6 mmol/L (3.4-5.1); SGPT/ALT 41 U/L (5-49); TOTAL PROTEIN 7.6 gm/dL (6.0-8.0); TRIGLYCERIDES 109 mg/dl (<150)
[2024-09-13 13:27] LABS: VITAMIN D, 25-HYDROXY 34.9 ng/mL (30-100)
== END | disposition home or self-care (01) ==
LOC: LAB 10:54 → MAMMO 11:00
PROVIDERS: Pediatrics; ATTEND Nurse Practitioner Family
DX: Z12.31 Encounter for screening mammogram for malignant neoplasm of breast (principal); D64.9 Anemia, unspecified; R53.83 Other fatigue; E55.9 Vitamin D deficiency, unspecified; J30.9 Allergic rhinitis, unspecified; Z79.899 Other long term (current) drug therapy

== ENCOUNTER 2025-01-26 08:45 | Emergency (ER) | payer MEDICARE ==
[~2025-01-26] VITALS: Ht 170.1 cm; Wt 113.4 kg
[2025-01-26] MEDS ORDERED: Synthroid,Lev150 MCG PO (09:10)
[2025-01-26 09:39] LABS: BASO # 0.1 10*3/uL (0.0-0.1); BASO % 0.9 % (0.0-1.0); EOS # 0.3 10*3/uL (0.0-0.4); EOS % 3.8 % (1.0-4.0); HEMATOCRIT 44.7 % (37.0-47.0); MEAN CELL VOLUME 89.4 fl (81.0-99.0); MEAN CORPUSCULAR HGB 27.8 pg (27.0-31.0); MEAN CORPUSCULAR HGB CONC 31.1 g/dl (33.0-37.0); MONO # 0.5 10*3/uL (0.1-1.0); MONO % 8.2 % (3.0-9.0); PLATELET COUNT AUTOMATED 261 10*3/uL (130-400); RED CELL DISTRI WIDTH 14.3 % (0-14.5); WHITE BLOOD COUNT 6.6 10*3/uL (4.8-10.8)
[2025-01-26 09:57] LABS: BUN 8 mg/dl (9-23); CHLORIDE 104 mmol/L (98-107); POTASSIUM 3.4 mmol/L (3.4-5.1)
== END 2025-01-26 10:47 | disposition home or self-care (01) ==
LOC: ED 08:45
PROVIDERS: Nurse Practitioner Family
DX: R07.89 Other chest pain (principal); F17.200 Nicotine dependence, unspecified, uncomplicated; Z88.8 Allergy status to other drugs, medicaments and biological substances; Z79.899 Other long term (current) drug therapy; Z90.710 Acquired absence of both cervix and uterus; Z90.49 Acquired absence of other specified parts of digestive tract; Z98.890 Other specified postprocedural states

== ENCOUNTER 2025-09-20 15:13 | Emergency (ER) | payer MEDICARE ==
[~2025-09-20] VITALS: Wt 120.2 kg
[~2025-09-20 15:13] MED LIST changes: +Synthroid,Lev150 MCG PO
[2025-09-20] MEDS ORDERED: LISINOPRIL10 M1 PO (16:02)
[2025-09-20] MEDS ORDERED: AMOX-CLAV 875-1 EACH PO (16:12)
== END 2025-09-20 16:17 | disposition home or self-care (01) ==
LOC: ED 15:13
DX: H66.91 Otitis media, unspecified, right ear (principal); B34.9 Viral infection, unspecified; F90.9 Attention-deficit hyperactivity disorder, unspecified type; F41.1 Generalized anxiety disorder; Z88.5 Allergy status to narcotic agent; F41.9 Anxiety disorder, unspecified; F31.9 Bipolar disorder, unspecified; Z98.890 Other specified postprocedural states; Z90.710 Acquired absence of both cervix and uterus; Z90.49 Acquired absence of other specified parts of digestive tract